=== PATIENT | male | born 1990 | race Hispanic/Latino ===

== ENCOUNTER 2021-06-24 18:32 | Emergency (ER) | payer BC, SELFPAY ==
[2021-06-24 18:40] VITALS: BP 122/69; PULSE 74; RESP 14; TEMP 36.7; O2SAT 100
--- NOTE | 2021-06-24 19:00 | ED.DENTAL ---
HPI - Dental/Oral General Chief complaint: Dental/Oral Stated complaint: Prescription refill Time Seen by Provider: 06/24/21 18:44 Source: senior biostatistician/group leader History of Present Illness HPI Narrative: Patient resents with a medication refill. He has a history of trigeminal neuralgia which is controlled with his carbamazepine which he ran out of yesterday and he is concerned because although he is not in a lot of pain right now his symptoms are sporadic and would like to be placed back on the medications. Patient is also concerned about his left face being itchy. Review of Systems Review of Systems: CONSTITUTIONAL: Denies fever, chills, or sweats. EYES: Denies visual changes, redness, or discharge. ENT: Denies rhinorrhea, congestion, sore throat, or otalgia. CARDIOVASCULAR: Denies chest pain, palpitations, or edema. RESPIRATORY: Denies cough or dyspnea. GASTROINTESTINAL: Denies abdominal pain, nausea, vomiting, or diarrhea. GENITOURINARY: Denies dysuria or hematuria. SKIN: Denies rash or itching. MUSCULOSKELETAL: Denies back pain, joint pain, or myalgia. NEUROLOGIC: Denies headache, numbness, dizziness, or weakness. PSYCHIATRIC: Denies anxiety or depression. All systems reviewed & are unremarkable except as noted in HPI and below Exam Narrative: GENERAL: Well-appearing, well-nourished, and in no acute distress. HEAD: Normocephalic, atraumatic. EYES: PERRLA and EOMI. ENT: Nares clear, no rhinorrhea or epistaxis. Mucous membranes moist. Oropharynx is clear so she has no tenderness with palpation of the teeth no edema on the face or in the oropharynx NECK: Supple. No masses. No JVD EXTREMITIES: Normal range of motion. No edema. SKIN: Warm, dry, no rash. NEURO: No focal deficits. Alert and oriented x3. PSYCH: Normal mood and affect. Course Vital Signs Vital signs: Vital Signs Temperature 36.7 C 06/24/21 18:40 Pulse Rate 74 06/24/21 18:40 Respiratory Rate 14 06/24/21 18:40 Blood Pressure 122/69 06/24/21 18:40 Pulse Oximetry 100 06/24/21 18:40 Temperature 36.7 C 06/24/21 18:40 Pulse Rate 74 06/24/21 18:40 Respiratory Rate 14 06/24/21 19:42 Blood Pressure 122/69 06/24/21 18:40 Pulse Oximetry 100 06/24/21 18:40 MDM - Dental/Oral MDM Narrative Medical decision making narrative: H&P as above, vss, pt looks clinically well, exam reassuring, labs/img considered, symptomatic relief available as needed, on reevaluation pt continues to looks clinically well. Patient reports only needs a medication refill patient was counseled on importance of primary care physician, dental abscess, CVA, cellulitis. plan to tx/monitor as op w/ pcm f/u findings/plan discussed with pt, pt agree/comfortable with plan, return precautions given Discharge Plan Discharge Clinical Impression: Trigeminal neuralgia Patient Disposition: Home, Self-Care Condition: Improved Instructions: Antibiotic Form, Trigeminal Neuralgia (ED) Additional Instructions: Please return if your symptoms worsen or fail to improve. If you develop a fever, can not eat/drink anything or if you have any other concerns. Patient Language: Maltese Prescriptions: New carbamazepine 200 mg tablet 400 mg PO Q12H 30 Days Qty: 120 RF: 0 hydroxyzine HCl 25 mg tablet 25 mg PO BID PRN (Reason: itching) Qty: 20 RF: 0 Follow-up/Referrals: PHYSICIAN,CHASSIS INSPECTOR [Primary Care Provider] - Stanford Asif MD [Physician] - (Pt would like to establish care. Maltese speaking only) Time of Disposition: 19:09
[2021-06-24 19:42] VITALS: RESP 14
== END 2021-06-24 19:43 | disposition home or self-care (01) ==
PROVIDERS: Emergency Provider Emergency Medicine
DX: G50.0 Trigeminal neuralgia (principal)
CPT/HCPCS: 99283

== ENCOUNTER 2021-10-08 12:46 | Emergency (ER) | payer BC, SELFPAY ==
[2021-10-08 12:51] VITALS: BP 117/59; PULSE 79; RESP 14; TEMP 36.3; O2SAT 99
--- NOTE | 2021-10-08 13:38 | ED.GENADULT ---
HPI - General Adult General Chief complaint: Skin/Abscess/Foreign Body <OCTAVIO Wood Last Filed: 10/08/21 20:35> Stated complaint: rash to face <OCTAVIO Wood Last Filed: 10/08/21 20:35> Time Seen by Provider: 10/08/21 12:52 <OCTAVIO Wood Last Filed: 10/08/21 20:35> Source: patient <OCTAVIO Wood Last Filed: 10/08/21 20:35> Mode of arrival: ambulatory <OCTAVIO Wood Last Filed: 10/08/21 20:35> Limitations: no limitations and language barrier <OCTAVIO Wood Last Filed: 10/08/21 20:35> History of Present Illness HPI narrative: Patient is a 30 y/o male who presents to the ED with c/o rash to his left-sided face. Patient is primarily Slovenian-speaking. [employer] spanish interpreter was used for translation. Patient reports he has been dealing with this rash intermittently for the past 1 month. The rash is very itchy, but nonpainful. He has been using [id number] Benadryl and hydrocortisone cream at home without much relief. He states the rash comes and goes and travels down face but then will subside again. He denies any new lotions, facial washes, laundry detergent. Denies any recent cuts or abrasions from shaving. Denies fever, chills. Denies any swelling of his lips, mouth, tongue, difficulty breathing, difficulty swallowing, eyelid swelling, eye pain, vision changes. <OCTAVIO Wood Last Filed: 10/08/21 20:35> Related Data Allergies/adverse reactions: Allergies Allergy/AdvReac Type Severity Reaction Status Date / Time No Known Allergies Allergy Verified 10/08/21 12:58 <OCTAVIO Wood Last Filed: 10/08/21 20:35> Review of Systems Review of Systems: CONSTITUTIONAL: Denies fever, chills. EYES: Denies visual changes, redness, pain, or swelling. ENT: Denies lip/mouth/tongue swelling, sore throat, dysphagia. RESPIRATORY: Denies dyspnea. GASTROINTESTINAL: Denies nausea, vomiting. SKIN: Reports rash and itching to L sided face. MUSCULOSKELETAL: Denies facial pain. NEUROLOGIC: Denies headache, numbness, tingling, or weakness. <Dianne Cruz PA-C - Last Filed: 10/08/21 20:35> All systems reviewed & are unremarkable except as noted in HPI and below <Dianne Cruz PA-C - Last Filed: 10/08/21 20:35> [facility] Past Medical History Medical History: Medical History (Updated 10/09/21 @ 00:00 by Boubacar Lantigua) No pertinent past medical history <Dianne Cruz PA-C - Last Filed: 10/08/21 20:35> Surgical History Surgical History: Surgical History (Updated 10/08/21 @ 20:22 by Dianne Cruz PA-C) No pertinent past surgical history <Dianne Crzu PA-C - Last Filed: 10/08/21 20:35> Social History Social History: Social History (Updated 10/08/21 @ 20:22 by Dianne Cruz PA-C) Smoking status: Never smoker <Dianne Cruz PA-C - Last Filed: 10/08/21 20:35> Exam Narrative: GENERAL: Well appearing, well-nourished, non-toxic, in no acute distress. HEAD: Normocephalic, atraumatic. EYES: PERRL/EOMI, conjunctivae clear bilaterally. No swelling of eyelids. NOSE: Normal, no drainage. No swelling or erythema. THROAT: Pharynx clear, no exudate. MMs moist. No erythema to posterior pharynx. No mucosal lesions, swelling. No tonsillar hypertrophy. NECK: Supple. No significant adenopathy, no masses. RESPIRATORY: Airway patent, respirations nonlabored. Clear to auscultation bilaterally, no rales, rhonchi, wheezing. CARDIOVASCULAR: Regular rate and rhythm without murmurs, rubs, or gallops. Radial pulses 2+ and equal bilaterally. MUSCULOSKELETAL: Moves all extremities. Strength/ROM intact without gross deformities. SKIN: Warm, dry, normal color. Mild erythematous, wheal-like rash to left-sided face, beginning near the outer left eye, extending snf down facial cheek. Somewhat swollen outer irregular border closest to nose, but border nondistinct in all other directions. Some white scaling present ov
== END 2021-10-08 14:54 | disposition home or self-care (01) ==
PROVIDERS: Emergency Provider Emergency Medicine
DX: R21 Rash and other nonspecific skin eruption (principal); B35.3 Tinea pedis
CPT/HCPCS: 99283